=== PATIENT | male | born 1965 | race Caucasian/White ===

== ENCOUNTER 2023-05-10 20:08 | Emergency (ER) | payer MEDICAID, OTHER ==
[~2023-05-10] VITALS: Ht 170.2 cm; Wt 70.0 kg
[2023-05-10 20:22] VITALS: BP 147/81; PULSE 71; RESP 14; TEMP 98; O2SAT 99
[2023-05-10] MEDS ORDERED: BACITRACIN ZINC OINT UDPKT TOP ONE (21:00)
[2023-05-10] MEDS ORDERED: BO1 TP (21:22)
== END 2023-05-11 01:04 | disposition home or self-care (01) ==
LOC: ER 20:08
DX: S61.012A Laceration without foreign body of left thumb without damage to nail, initial encounter (principal); E11.9 Type 2 diabetes mellitus without complications; X58.XXXA Exposure to other specified factors, initial encounter; Y93.89 Activity, other specified; Y92.89 Other specified places as the place of occurrence of the external cause; Y99.8 Other external cause status
CPT/HCPCS: 99282